=== PATIENT | male | born 1995 | race Caucasian/White ===

== ENCOUNTER 2019-11-20 13:23 | Emergency (ER) | payer OTHER ==
[~2019-11-20] VITALS: Ht 167.6 cm; Wt 68.0 kg
[2019-11-20 13:25] VITALS: BP 151/100
--- NOTE | 2019-11-20 13:52 | NUR ---
Patient awake alert [employer] officer @ bedside .
--- NOTE | 2019-11-20 14:03 | NUR ---
Patient discharged in custody in stable condition. Written and verbal after care instructions given. Patient verbalizes understanding of instruction.
== END 2019-11-20 14:04 ==
LOC: ER 13:30
DX: M25.511 Pain in right shoulder (principal); Z86.19 Personal history of other infectious and parasitic diseases
CPT/HCPCS: 73030-TC